=== PATIENT | male | born 1945 | race Caucasian/White ===

== ENCOUNTER → 2016-05-03 | Outpatient (CLI) | payer MEDICARE ==
[~2016-05-03] MED LIST: ASPI-482 PO; IOHEXOL 180 MG/ML 20ML VIAL. IT ONE; LIDOCAINE 1% Multi-Dose 20 ML VIAL. ID ONE
--- NOTE | 2016-05-03 13:05 | KCIC ---
PROCEDURE Lumbar myelogram 05/03/2016 HISTORY Low back pain with history of previous lumbar spine surgery. TECHNIQUE After the risks and benefits of the procedure were explained to the patient, written informed consent was obtained. The patient was placed prone on the fluoroscopy table and the lower back was prepped and draped in sterile fashion. 1 percent lidocaine was used as a local anesthetic. Under fluoroscopic guidance, the thecal sac of the lumbar cistern was punctured at the L3-4 level using a 25 gauge Donny needle. After confirming clear CSF return, 15 cc of Omnipaque 180 were injected through the needle into the thecal sac of the lumbar cistern under fluoroscopic guidance. Following this the needle was removed and hemostasis achieved at the puncture site. A sterile Band-Aid was placed on the skin puncture site. AP, lateral, bilateral oblique and standing neutral and flexion and extension lateral digital spot radiographs of the lumbar spine were obtained. Following this, the patient was taken to CT where a CT scan of the lumbar spine was performed. This will be reported separately. The patient was then taken to the recovery area were he was observed for approximately 30 minutes prior to discharge home. The the patient tolerated the procedure well and there were no immediate complications. The patient was sent home with an instruction sheet. The total fluoroscopic time for this study was 1 minutes 19 seconds. Nine digital spot radiographs were obtained. FINDINGS There is mild straightening of the normal lumbar lordosis. Degenerative changes consisting of vertebral endplate sclerosis and minimal to mild anterior vertebral body osteophyte formation are seen throughout the lumbar disc spaces. Disc space narrowing is seen at L4-5 and L5-S1. Degenerative changes are seen involving the facet joints of the mid and lower lumbar spine. Atherosclerotic calcification of the abdominal aorta is noted. A mild anterior extradural defect is seen upon the contrast column at L1-2. Mild anterior and posterior extradural defects are seen upon the contrast column at L2-3 and L3-4. A mild anterior extradural defect is seen upon the contrast column at L4-5. A mild posterior extradural defect is seen upon the contrast column at L5-S1. There is no evidence of complete block of contrast at any level. The alignment of the lumbar vertebrae is maintained on the flexion and extension radiographs. IMPRESSION Degenerative changes are seen throughout the lumbar spine as outlined above. Electronically signed by: Kendall Echols MD (May 03, 2016 13:02:34)
--- NOTE | 2016-05-03 13:34 | KCIC ---
PROCEDURE CT lumbar myelogram 05/03/2016 HISTORY Low back pain which radiates down the left leg. TECHNIQUE This study was performed after a lumbar myelogram. Contiguous, 0.6 millimeter axial sections were obtained through the lumbar spine. 3 millimeter reconstructed sagittal, axial and coronal images were obtained. One or more of the following individualized dose reduction techniques were utilized for this study: 1. Automated exposure control. 2. Adjustment of the mA and/or kV according to patient size. 3. Use of iterative reconstruction technique. FINDINGS Comparison is made to the patient's lumbar myelogram performed earlier today. Sagittal and coronal reconstructed images demonstrate minimal lateral curvature of the lumbar spine convex to the left. Degenerative changes consisting vertebral endplate sclerosis and mild to moderate anterior vertebral body osteophyte formation are seen throughout the lumbar disc spaces. Disc space narrowing is seen at L4-5 and L5-S1. Atherosclerotic calcification of the abdominal aorta and its branches is noted. At the L1-2 disc space there is mild to moderate generalized disc bulge. Degenerative changes are seen involving the facet joints bilaterally. There is mild to moderate ligamentum flavum hypertrophy. These findings do not result in significant central spinal canal or neural foraminal stenosis. At the L2-3 disc space there is a mild to moderate generalized disc bulge. This is eccentric to the left. Degenerative changes are seen involving the facet joints bilaterally. There is moderate ligamentum flavum hypertrophy bilaterally. These findings when combined result in mild left greater than right central spinal canal stenosis. No neural foraminal stenosis is seen. At the L3-4 disc space there is a moderate generalized disc bulge. Superimposed on this disc bulge is a left paracentral focal disc herniation which extrudes slightly inferiorly. This measures 4 millimeters in AP diameter. Degenerative changes are seen involving the facet joints bilaterally. There is moderate ligamentum flavum hypertrophy bilaterally. These findings result in mild to moderate left greater than right central spinal canal stenosis. No neural foraminal stenosis is seen. At the L4-5 disc space the patient is status post left hemilaminotomy. There is a mild to moderate generalized disc bulge. This is eccentric to the left. Degenerative changes are seen involving the facet joints bilaterally. These findings when combined do not result in significant central spinal canal stenosis. Mild left greater than right neural foraminal stenosis is seen. At the L5-S1 disc space there is a mild to moderate generalized disc bulge. Degenerative changes are seen involving the facet joints, left greater than right. These findings when combined do not result in significant central spinal canal stenosis. Mild to moderate neural foraminal stenosis is seen, left greater than right. IMPRESSION 1. Status post left hemilaminotomy at L4-5. 2. The changes of degenerative disc disease are seen throughout the lumbar spine. These findings result in mild left greater than right central spinal canal stenosis at L2-3 and mild to moderate left greater than right central spinal canal stenosis at L3-4 with mild left greater than right neural foraminal stenosis at L4-5 and mild to moderate left greater than right neural foraminal stenosis at L5-S1. Electronically signed by: Kendall Echols MD (May 03, 2016 13:32:28)
--- NOTE | 2016-05-03 13:37 | KCIC ---
PROCEDURE AP and lateral lumbar spine radiographs to include flexion and extension views 05/03/2016 HISTORY Low back pain which radiates down the left leg. FINDINGS Standing AP and 2 neutral lateral along with flexion and extension lateral digital radiographs of the lumbar spine were obtained. Minimal S-shaped curvature of the thoracolumbar spine is seen. Degenerative changes consisting of vertebral endplate sclerosis and minimal to mild anterior vertebral body osteophyte formation are seen throughout the lumbar disc spaces. Disc space narrowing is seen at L4-5 and L5-S1. Degenerative changes are seen involving the facet joints of the mid and lower lumbar spine. No fracture or subluxation is seen. The alignment of the lumbar vertebrae is maintained on the flexion and extension radiographs. Atherosclerotic calcification of the abdominal aorta is seen. IMPRESSION Degenerative changes are seen throughout the lumbar spine as outlined above. No acute osseous abnormality is seen. The alignment of the lumbar vertebrae is maintained on the flexion and extension radiographs. Electronically signed by: Kendall Echols MD (May 03, 2016 13:36:17)
== END | disposition home or self-care (01) ==
LOC: KCIC 10:00
PROVIDERS: ATTEND Neurological Surgery
DX: M54.5 Low back pain (principal); M54.16 Radiculopathy, lumbar region
CPT/HCPCS: 72110; 72132; 72265

== ENCOUNTER → 2016-05-21 | Outpatient (CLI) | payer MEDICARE ==
[~2016-05-21] MED LIST changes: -IOHEXOL 180 MG/ML 20ML VIAL. IT ONE; -LIDOCAINE 1% Multi-Dose 20 ML VIAL. ID ONE
--- NOTE | 2016-05-22 08:45 | KCIC ---
PROCEDURE MRI thoracic spine without contrast. HISTORY Chronic low back pain. Spinal cord stimulator evaluation. TECHNIQUE Sagittal T1, sagittal T2, sagittal STIR, axial T1, and axial T2 sequences are provided. COMPARISON None. FINDINGS There is a T12 hemangioma. There is no worrisome marrow lesion. There is no marrow edema. There is negligible anterolisthesis at T3-T4, there is otherwise no malalignment. There is no cord signal abnormality. There are tiny bilateral paracentral protrusions at T4-T5. There is a small right paracentral protrusion at T7-T8. There is a small left paracentral protrusion at T9-T10. There is a small right paracentral protrusion at T11-T12. There is no high-grade canal or foraminal compromise at any level. IMPRESSION There are several small protrusions in the thoracic spine. This does not result in any high-grade canal or foraminal compromise at any level. Electronically signed by: Yonatan Mitchell MD (May 22, 2016 08:43:02)
== END | disposition home or self-care (01) ==
LOC: KCIC MRI 16:17
PROVIDERS: ATTEND Neurological Surgery
DX: M54.16 Radiculopathy, lumbar region (principal); D18.09 Hemangioma of other sites; M51.24 Other intervertebral disc displacement, thoracic region
CPT/HCPCS: 72146